=== PATIENT | female | born 1960 | race Caucasian/White ===

== ENCOUNTER → 2018-04-07 19:22 | Outpatient (REF) | payer OTHER, SELFPAY ==
[2018-04-07 20:07] LABS: Alanine Aminotransferase 52 IU/L (9-52); Albumin 4.1 g/dL (3.5-5.0); Albumin Globulin Ratio 1.5 (1.0-2.8); Alkaline Phosphatase 78 U/L (38-126); Aspartate Aminotransferase 28 IU/L (14-36); BUN Creatinine Ratio 25.7 (6-22); Bilirubin Total 0.3 mg/dL (0.2-1.3); Blood Urea Nitrogen 18 mg/dL (7-17); Calcium 8.8 mg/dL (8.4-10.2); Carbon Dioxide 25 mmol/L (22-32); Cholesterol 217 mg/dL (140-199); Estimated Glomerular Filt Rate > 60.0 mL/min (>60); Globulin 2.8 g/dL (1.7-4.1); Glucose 116 mg/dL (70-100); HDL Cholesterol 39 mg/dL (40-60); HEMOLYSIS < 15 (0-50); LDL Cholesterol Calculated 124 mg/dL (<100); Total Protein 6.9 g/dL (6.3-8.2); Triglycerides 271 mg/dL (35-150)
[2018-04-07 20:13] LABS: Chloride 104 mmol/L (98-107); Potassium 4.2 mmol/L (3.4-5.1); Sodium 139 mmol/L (137-145)
[2018-04-07 20:35] LABS: Thyroid Stimulating Hormone 3.86 uIU/mL (0.47-4.68)
== END ==
LOC: LAB 19:22
PROVIDERS: Visit Provider Physician Assistant
DX: E03.9 Hypothyroidism, unspecified (principal); Z13.220 Encounter for screening for lipoid disorders
CPT/HCPCS: 36415; 80053; 80061; 84443

== ENCOUNTER 2018-10-17 23:12 | Observation (INO) | payer OTHER, MEDICAID, SELFPAY ==
[2018-10-18] VITALS (17 sets, daily range): BP systolic 128–158; BP diastolic 76–97; PULSE 71–98; RESP 10–21; TEMP 36.1–36.9; O2SAT 86–97; BMI 88.5; BMI 41.5
--- NOTE | 2018-10-18 | PATH_ITS ---
[facility] Accession Number: [id number] . 01 Material submitted: . appendix - APPENDIX . 01 Clinical history: . PAIN . 01 Diagnosis: Appendix, Appendectomy: Acute suppurative appendicitis and associated acute serositis. Negative for dysplasia and malignancy. MRV 10/22/2018 1537 Local . 01 Electronically signed: . Darlene Dao MD, Pathologist NPI- [id number] . 01 Gross description: . Received in formalin, labeled appendix, is an intact appendix (length-7.8 cm, diameter-up to 1.8 cm) with menendez-moura smooth shiny focally exudate-covered serosa and attached mesoappendix (up to 2.7 cm in depth). The resection margin is received stapled. The lumen contains red-brown solid-soft material. The wall is up to 0.3 cm thick. No nodules, masses or lesions are identified. The resection margin is inked blue. Section code: (A1) resection margin en face and specialty sales representative serial sections; (A2) one-half of the bivalved tip. ([id number]) /MRV 10/22/2018 1108 Local . 01 Pathologist provided ICD-10: K35.80 . 01 CPT . 884304 Performed at: [address], [place], [place] [id number] MD Rashad Guy MD Phone: [phone]
[2018-10-18] MEDS: ONDANSETRON 4 MG/2 ML INJ IV (01:54)
[2018-10-18] MEDS: OXYCODONE IR 5 MG TABLET PO ×2 (01:54→16:31)
[2018-10-18] MEDS: SODIUM CHLORIDE 0.9% 1,000 ML 125 ML IV (01:55)
[2018-10-18] MEDS: ZOLPIDEM 5 MG TABLET PO (01:56)
[2018-10-18] MEDS: PIPERACILLIN-TAZO 3.375 GM/50 ML FROZ.PIGGY IV ×3 (01:59→14:06)
--- NOTE | 2018-10-18 06:26 | PC.NURSE ---
pt admitted for appendectomy at 0900. Reports pain 4/10 on RLQ. Denies any other areas of pain. Pt reports PO intake has decreased in past few weeks. Pt also admits to vague thoughts of life would be easier if I wasn't broke Denies having plan for suicide, thoughts are vague and only pops into my head a few times a month II have a good life and I live with my friend whom Mikaela known since grade school Pt unsure if she will discharge back to [facility].
--- NOTE | 2018-10-18 08:23 | PM.HP.1 ---
History of Present Illness History of Present Illness Date Patient Seen: 10/18/18 Time Patient Seen: 08:24 Chief complaint: Pain Narrative: This 57-year-old woman who is transferred from outside hospital with acute appendicitis. She developed right lower quadrant abdominal pain yesterday morning Um was evaluated in the emergency room on Friday where she underwent a CT of her abdomen pelvis that demonstrates a dilated appendix of 9 mm with some fat stranding and no free air no no abscess. White count at the outside hospital was 16. She was began on Zosyn and IVF resucitation. This morning she feels significantly better, has mild right lower quadrant pain improved from yesterday no nausea vomiting or diarrhea. Patient History Medical History (Updated 10/18/18 @ 08:28 by Augie Clinton MD) Anxiety (Acute) Asthma (Acute) Surgical History (Updated 10/18/18 @ 08:28 by Augie Clinton MD) H/O thyroidectomy (Acute) Hx of cholecystectomy (Acute) Social History household members: friend(s) Smoking Status: Former smoker alcohol intake: current Family & Social History Social History: household members friend(s) Prior Living Arrangements House Safety & Behavioral: Feels Safe in Current Yes Environment Been Physically Hurt or No Threatened By a Person Suicidal Ideation Description Vague Suicide Plan Description No Plan Tobacco & Substance use: Tobacco type cigarettes Smoking Status Former smoker alcohol intake current alcohol intake frequency a few times a month Substance Use Type marijuana Meds Home Medications and Allergies Home Medications Medication Instructions Recorded Confirmed Type amitriptyline 25 mg PO ONCE HS 10/18/18 10/18/18 History levothyroxine [Synthroid] 125 mcg PO 10/18/18 History piroxicam 20 mg 10/18/18 History Allergies Allergy/AdvReac Type Severity Reaction Status Date / Time codeine AdvReac Nausea Verified 10/18/18 01:28 Penicillins AdvReac Rash Verified 10/18/18 01:30 Review of Systems Review of Systems ROS Unobtainable: All systems reviewed & are unremarkable except as noted in HPI and below Exam Vital Signs (past 8 hours): - 10/18/18 00:45 10/18/18 04:00 Temperature 97.6 F 98.1 F Pulse Rate 86 89 Respiratory Rate 20 16 Blood Pressure 145/93 H 148/88 H Pulse Oximetry 97 96 Narrative Exam Narrative: GENERAL-ADULT FEMALE NO ACUTE DISTRESS, WELL NOURISHED HEENT-MOIST MUCOUS MEMBRANES, NO SCLERAL ICTERUS NECK-SUPPLE WITH FULL RANGE OF MOTION, NO LYMPHADENOPATHY CHEST- NO LABORED RESPIRATIONS, CLEAR TO AUSCULTATION BILATERALLY CARDIAC-REGULAR RATE AND RHYTHM ABDOMEN-SOFT, MILDLY TENDER RLQ NO GAURDING EXTREMITIES-NO EDEMA, WARM WELL PERFUSED NEUROLOGICAL-ALERT AND ORIENTED X 3. NO FOCAL DEFICITS SKIN-NORMAL TEMPERATURE AND TURGOR, NO RASHES OR ULCERS Objective Labs Labs: Cr 0.8, WBC 16, Hct 42, Plt 340, UA-negative CT-9mm appendix with stranding no abscess or free air Assessment & Plan Assessment and plan (1) Acute appendicitis: Current visit: Yes Status: Acute Assessment & Plan narrative: 57-year-old female with 24 hours of right lower quadrant pain and a CT demonstrating acute uncomplicated appendicitis nontoxic appearing. I reviewed her CT which demonstrates a mildly inflamed appendix no abscess, WBC 16, UA negative PLAN Laparoscopic possible open appendectomy Zosyn IVF Quality VTE Deep Vein Thrombosis/Pulmonary Embolism Present on Admission: No
--- NOTE | 2018-10-18 08:51 | PC.NURSE ---
Day Shift- Pt's wallet, earrings X1 set and gold colored ring placed in unit safe, pt took her cell phone, glasses and a book to OR. Left via bed at 0850 in no distress, slightly anxious.
[2018-10-18] MEDS: LACTATED RINGERS 1,000 ML 42 ML IV (09:44)
[2018-10-18] MEDS: SCOPOLAMINE 1 PATCH TOP (09:46)
[2018-10-18] MEDS: APREPITANT 40 MG CAPSULE PO (09:47)
--- NOTE | 2018-10-18 10:32 | SUR.OPER ---
Supine on padded OR bed, head on pillow, arm padded and tucked at side, legs uncrossed, safety belt at thigh, tape over blanket over lower legs .
[2018-10-18] MEDS: ACETAMINOPHEN IV 1,000 MG/100 ML VIAL 400 MG IV (10:35)
[2018-10-18] MEDS: BUPIVACAINE 0.5% (PF) VIAL 30 ML INJ (10:47)
--- NOTE | 2018-10-18 11:28 | PM.OP.1 ---
Operative Date/Time/Diagnoses Date of procedure: 10/18/18 Time of procedure: 11:28 Pre-op diagnosis: acute appendicitis Post-op diagnosis: same Procedure & Clinicians Procedure: laparoscopic appendectomy Same procedure as scheduled: Yes Indications: 57-year-old female presented with acute appendicitis. She developed the right lower quadrant pain for [address] scan of the abdomen pelvis demonstrated a dilated appendix with some stranding no abscess. Surgeon: Augie Clinton Click Yes if Unassisted: Yes Anesthesia Type: General Operative Notes Findings: acute non perforated appendicitis Specimen(s): other (appendix) Procedure in detail: Patient was brought to the operating room placed supine on the table. Bilateral lower extremity compression devices were applied. She was induced and intubated with an endotracheal tube. She received 3.375 g of Zosyn prior to skin incision. She was then prepped and draped in usual sterile fashion. Time-out was performed to ensure the correct patient procedure necessary equipment within the operating room. The skin was infiltrated with 0.25% bupivacaine. A infraumbilical incision was made the umbilical stalk was grasped and elevated and incision was made and the abdomen was entered atraumatically. A 12 mm balloon trocar was then placed into the incision and pneumoperitoneum was established. The scope was then inspected abdomen inspected and there was no evidence of injury upon entry. Two 5 mm working ports were then placed supra pubic and in the left lower quadrant. The small bowel was then swept to the upper aspect of the abdomen cecum was identified and the appendix was visible. The appendix appeared inflamed but was not perforated. The appendix was grasped and a window within the mesentery was made. The appendix was then transected from the cecum using the Endo GI stapler with a blue load. Next the mesentery to the appendix was taken with the stapler using the vascular staple load. The specimen was removed using the Endo-Catch bag. The abdomen was irrigated and hemostasis was checked. The ports were then removed under direct visualization. The umbilical fascial incision was closed with 0 Vicryl in a figure-eight fashion. The skin wounds were irrigated and closed with Monocryl followed by the application of Dermabond. Sponge instrument count at the end of the operation was correct. The patient tolerated procedure well was extubated and transferred to the postoperative care unit in stable condition Complications: none Post-operative Condition: stable Disposition: Acute Care
--- NOTE | 2018-10-18 11:58 | SUR.PHASEI ---
pt transferred to acute care floor in stable condition, vss. pt resting with eyes closed, easily responds to voice when spoken to. bedside report given to KALEN Hurst. Transferred care of pt to KALEN Hurst at that time.
--- NOTE | 2018-10-18 12:08 | PC.NURSE ---
Addendum entered by Natali Alfaro R.N. 10/18/18 14:55: Pt's wallet and earrings and ring return to pt. Pt also came back from PACU with her glasses, phone and book. Pt voided X1, ambulated to [facility], instructed on abd splinting. Addendum entered by Natali Alfaro R.N. 10/18/18 14:46: Pt's prescription of Oxycodone given to her friend Farzad Miller per pt's request to take over to [facility] in [place] to have filled as [facility] is closed. Pt wants to go home today. Plan for 2020 [facility] direct to [facility]. Addendum entered by Natali Alfaro R.N. 10/18/18 13:02: Paged Dr. Awan at 1257, received phone call back at 1259, new order rec'd from general diet order. Okay to cancel discharge order if patient stays the night, no need to call physician to be made aware that pt will spend the night unless pt medical status changes. Addendum entered by Natali Alfaro R.N. 10/18/18 12:58: Late Entry, Report rec'd from KALEN Sanabria in PACU at 1139 on current patient status. Original Note: DAy Shift- Pt arrived back from PACU at 1155 to room 210. Oriented to call light and post op routines. Abd lap sites X3 to abd well approximated with surgical glue. VSS, afebrile, On 2L NC at this time, O2 sat 95%, will attempt to wean. IVF restarted to left AC PIV. Bed alarm on.
--- NOTE | 2018-10-18 13:37 | CM.DANOTE ---
Addendum entered by Rosette Murphy 10/18/18 14:04: Initial clinical faxed to [facility] at [phone]. GEOR[place]NAS Original Note: DCP/Assessment: Reviewed chart. Patient is a 57yr old female admitted to [facility] under OBS status with abdominal pain. No PCP listed. Primary payor is 1)[facility]. Attempted to meet with patient this AM. Patient under went lap appy today and just returned to the floor. Therefore, unable to interview. Per RN, patient resides on /[place]. Current plan is for patient to return when medically stable. RN unsure if she will d/c today vs. in AM. Patient has to obtain ride from [facility] and coordinate return trip. Patient most likely will need priority boarding pass for whomever picks her up. In addition, RN reports patient with h/o nausea after previous procedures. P: Anticipate home when stable. Will reattempt visit when patient more medically appropriate. No family or friends at bedside. 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 No History Provided By Medical Record Prior Living Arrangements House Household Members friend(s) Independent with ADL's Yes Is patient alert and oriented? Just returned from surgery unable to assess. Barriers to Discharge Yes Comment Patient resides on I will need ride home and priority boarding pass. Discharge Plan Home Whiteboard Updated in Patient Room with No name and ext. # of Pie Crust Mixer Review Status In Process Next Review Type Continued Stay Review
--- NOTE | 2018-10-18 16:03 | PC.NURSE ---
Addendum entered by Gale Kim R.N. 10/18/18 17:56: IV LAC discontinued intact. Pt discharge instructions given Pt escorted to waiting vehicle in stable condition. Original Note: Pt awake, watching TV. Denies discomfort at this time. Planning discharge approximately 1900. IVF infusing as per orders w/o incidence. ' Abd soft/tender, w/three lap sites w/surgibond CDI Call light w/in reach, bed alarm on for pt safety.
== END 2018-10-18 17:50 | disposition home or self-care (01) ==
PROVIDERS: Admitting Provider Surgery; PCP Family Medicine Geriatric Medicine; Visit Provider Surgery
PROC: 0DTJ4ZZ Resection of Appendix, Percutaneous Endoscopic Approach (ICD-10-PCS; CPT 44970; principal; 2018-10-18 09:00)
DX: K35.80 Unspecified acute appendicitis (principal); F41.9 Anxiety disorder, unspecified; J45.909 Unspecified asthma, uncomplicated
CPT/HCPCS: 44970; G0378; G0379; J0131; J0330; J1100; J1885; J2250; J2405; J2543; J2704; J3010; J8501